=== PATIENT | male | born 1965 | race Two or more races ===

== ENCOUNTER 2017-06-16 20:02 | Emergency (ER) | payer BC ==
--- NOTE | 2017-06-16 20:08 | PDOC ---
History of Present Illness - General History Source: Patient Exam Limitations: No Limitations - History of Present Illness Initial Comments: 06/16/17 20:55 The patient is a 51 year old male, with a significant past medical history of hypothyroidism on Synthroid, who presents to the emergency department with 45 minutes of chest pain. He explains the pain as a discomfort in his left upper quadrant of his torso. He reports to have eaten 5 hours ago a fried meat meal. He denies any recent fevers, chills, headache or dizziness. He denies any recent nausea, vomit, diarrhea or constipation. He denies any recent shortness of breath. He denies any recent dysuria, frequency, urgency or hematuria. Allergies: NKA Past surgical history: None reported. Social History: Nonsmoker. Denies EtOH use and recreational drug use. Primary Care Physician: Dr. Kaur <John Pierre - Last Filed: 06/16/17 21:04> <Ifeanyi Finn - Last Filed: 06/16/17 22:40> - General Chief Complaint: Chest Pain Stated Complaint: CHEST PAIN Time Seen by Provider: 06/16/17 20:07 Past History <John Pierre - Last Filed: 06/16/17 21:04> - Past Medical History Thyroid Disease: Yes (HYPOTHYROID) - Suicide/Smoking/Psychosocial Hx Smoking History: Never smoked Have you smoked in the past 12 months: No Number of Cigarettes Smoked Daily: 0 Hx Alcohol Use: Yes (OCC) Substance Use Type: None <Ifeanyi Finn - Last Filed: 06/16/17 22:40> - Past Medical History Allergies/Adverse Reactions: Allergies Allergy/AdvReac Type Severity Reaction Status Date / Time No Known Allergies Allergy Verified 10/19/13 10:35 Home Medications: Ambulatory Orders Acetaminophen W/ Codeine #3 [Tylenol # 3 -] 1 - 2 tab PO Q6H PRN #30 tablet 04/24 Cephalexin Monohydrate [Keflex -] 500 mg PO Q8H #21 capsule 10/19/13 Levothyroxine [Synthroid -] 100 mcg PO DAILY 10/19/13 Sulfamethoxazole/Trimethoprim [Bactrim DS -] 1 tab PO BID #14 tablet 10/19/13 Review of Systems - Review of Systems Able to Perform ROS?: Yes Comments:: 06/16/17 20:56 GENERAL/CONSTITUTIONAL: No fever or chills. No weakness. HEAD, EYES, EARS, NOSE AND THROAT: No change in vision. No ear pain or discharge. No sore throat. CARDIOVASCULAR: +Chest pain. No shortness of breath. RESPIRATORY: No cough, wheezing, or hemoptysis. GASTROINTESTINAL: No nausea, vomiting, diarrhea or constipation. GENITOURINARY: No dysuria, frequency, or change in urination. MUSCULOSKELETAL: No joint or muscle swelling or pain. No neck or back pain. SKIN: No rash NEUROLOGIC: No headache, vertigo, loss of consciousness, or change in strength/ sensation. ENDOCRINE: No increased thirst. No abnormal weight change. HEMATOLOGIC/LYMPHATIC: No anemia, easy bleeding, or history of blood clots. ALLERGIC/IMMUNOLOGIC: No hives or skin allergy. All Other Systems: Reviewed and Negative <John Pierre - Last Filed: 06/16/17 21:04> *Physical Exam - Vital Signs Last Vital Signs Temp Pulse Resp BP Pulse Ox 98.7 F 66 14 132/87 96 06/16/17 20:06 06/16/17 20:30 06/16/17 20:06 06/16/17 20:06 06/16/17 20:30 - Physical Exam Comments: 06/16/17 21:04 GENERAL: Awake, alert, and fully oriented, in no acute distress HEAD: No signs of trauma EYES: PERRLA, EOMI, sclera anicteric, conjunctiva clear ENT: Auricles normal inspection, hearing grossly normal, nares patent, oropharynx clear without exudates. Moist mucosa NECK: Normal ROM, supple, no lymphadenopathy, JVD, or masses LUNGS: Breath sounds equal, clear to auscultation bilaterally. No wheezes, and no crackles HEART: Regular rate and rhythm, normal S1 and S2, no murmurs, rubs or gallops ABDOMEN: Soft, nontender, normoactive bowel sounds. No guarding, no rebound. No masses EXTREMITIES: Normal range of motion, no edema. No clubbing or cyanosis. No cords, erythema, or tenderness NEUROLOGICAL: Cranial nerves II through XII grossly intact. Normal speech, normal gait SKIN: Warm, Dry, normal turgor, no rashes or lesions noted. <John Pierre - Last Filed: 06/16/17 21:04> ED Treatment Course - Medications Given in the ED: ED Medications Discontinued Medications Generic Name Dose Route Start Last Admin Trade Name Mariia PRN Reason Stop Dose Admin Aspirin 324 mg 06/16/17 20:10 06/16/17 20:32 Asa - PO 06/16/17 20:11 324 mg ONCE ONE Administration <John Pierre - Last Filed: 06/16/17 21:04> - LABORATORY CBC & Chemistry Diagram: 06/16/17 20:22 06/16/17 20:22 <Ifeanyi Finn - Last Filed: 06/16/17 22:40> Medical Decision Making - Medical Decision Making 06/16/17 22:38 Patient refused the Nitro as his pain had already gone away. The pain was very lateral and not reproducible and it was not related to exertion or meals. All diagnsotic studies unremarkable Physical exam normal <Ifeanyi Finn - Last Filed: 06/16/17 22:40> *DC/Admit/Observation/Transfer - Attestations Scribe Attestion: 06/16/17 20:56 Documentation prepared by John Pierre, acting as hospitalist medical director for Ifeanyi Finn MD. <John Pierre - Last Filed: 06/16/17 21:04> - Discharge Dispostion Admit: No - Attestations Physician Attestion: 06/16/17 20:08 I, Dr. Ifeanyi Finn, attest that this document has been prepared under my direction and personally reviewed by me in its entirety. I further attest, that it accurately reflects all work, treatment, procedures and medical decision -making performed by me. <Ifeanyi Finn - Last Filed: 06/16/17 22:40> Diagnosis at time of Disposition: Atypical chest pain - Discharge Dispostion Disposition: HOME Condition at time of disposition: Good - Referrals Referrals: Samuel Kaur MD [Primary Care Provider] - - Patient Instructions Printed Discharge Instructions: DI for Atypical Chest Pain Additional Instructions: Mr Cruz- Your test results are all normal. You can follow up with your doctor later this week. Return to us if any problems. Best- Dr. Ifeanyi Finn - Post Discharge Activity
[2017-06-16] MEDS ORDERED: ASPIRIN 81 MG CHEWABLE TABLETS PO ONE (20:10)
[2017-06-16 20:22] VITALS: BP 132/87; PULSE 66; TEMP 98.7
[2017-06-16] MEDS ORDERED: ASPIRIN 81 MG CHEWABLE TABLETS ONE (20:33)
[2017-06-16] MEDS ORDERED: NITROGLYCERIN SUBLINGUAL 1/150 0.4 MG TAB ONE (20:35)
[2017-06-16] MEDS ORDERED: NITROGLYCERIN SUBLINGUAL 1/150 0.4 MG TAB SL ONE (20:44)
[2017-06-16 21:48] LABS: BASOPHIL 0.4 % (0-2.0); EOSINOPHIL 3.5 % (0-4.5); MCH 30.6 pg (25.7-33.7); MCHC 34.7 g/dl (32.0-35.9); MEAN CELL VOLUME 88.1 fl (80-96); MEAN PLT VOLUME 8.5 fl (7.5-11.1); NEUTROPHILS 55.4 % (42.8-82.8); PLATELET COUNT 237 K/MM3 (134-434); RDW 12.5 % (11.9-15.9); WHITE BLOOD COUNT 6.6 K/mm3 (4.0-10.8)
[2017-06-16 21:57] LABS: INR 1.11 (0.82-1.09); PROTHROMBIN TIME (PATIENT) 12.4 SEC (10.2-13.0)
[2017-06-16 22:03] LABS: ALBUMIN 4.5 g/dl (3.5-5.0); ALK PHOS 46 U/L (32-92); ANION GAP 8 (8-16); BILIRUBIN,TOTAL 0.7 mg/dl (0.2-1.0); CALCIUM 9.3 mg/dl (8.4-10.2); CO2 28 mmol/L (22-28); CPK 253 IU/L (39-308); CREATININE 0.7 mg/dl (0.6-1.3); GLUCOSE,RANDOM 108 mg/dl (74-106); SGOT/AST 25 U/L (10-42); SGPT/ALT 36 U/L (10-40); TOT PROT 7.1 g/dl (6.4-8.3)
[2017-06-16 22:15] LABS: TROPONIN I (DFP) < 0.03 ng/ml (0.03-0.50)
--- NOTE | 2017-06-17 13:27 | EKG ---
Test Reason : Blood Pressure : / mmHG Vent. Rate : 066 BPM Atrial Rate : 066 BPM P-R Int : 180 ms QRS Dur : 088 ms QT Int : 390 ms P-R-T Axes : 043 032 031 degrees QTc Int : 408 ms POOR DATA QUALITY, INTERPRETATION MAY BE ADVERSELY AFFECTED NORMAL SINUS RHYTHM NORMAL ECG NO PREVIOUS ECGS AVAILABLE Confirmed by SUE TIRADO MD ([id number] on 06/17/2017 1:27:00 PM Referred By: MD VILLATORO Confirmed By:SUE TIRADO MD
== END 2017-06-16 23:14 | disposition home or self-care (01) ==
LOC: FER 20:02
DX: R07.89 Other chest pain (principal); E03.9 Hypothyroidism, unspecified
CPT/HCPCS: 36415; 71010-TC; 80053; 82550; 82553; 84484; 85025; 85610; 93005; 99285-25

== ENCOUNTER 2020-01-12 17:47 | Emergency (ER) | payer BC ==
[2020-01-12 18:02] VITALS: TEMP 98.3; BMI 28.3
--- NOTE | 2020-01-12 18:42 | PDOC ---
Documentation entered by Mary Fishman SCRIBE, acting as scribe for Gita Boland MD. Gita Boland MD: This documentation has been prepared by the [email or web address] juárez Lincy, SCRIBE, under my direction and personally reviewed by me in its entirety. I confirm that the documentation accurately reflects all work, treatment, procedures, and medical decision making performed by me. History of Present Illness - General Chief Complaint: Shortness of Breath Stated Complaint: SOB History Source: Patient Exam Limitations: No Limitations - History of Present Illness Initial Comments: 01/12/20 18:40 54-year-old male here today complaining of shortness of breath on exertion. P atient states he was COVID positive in September at that time was treated as an outpatient says he was ill for several weeks did feel slightly better following but over the last 2 weeks he is noticed increasing shortness of breath with going upstairs and decreased exercise capacity. Has had bilateral leg swelling which is minimal denies any chest pain or pleurisy. Last night he started noting vertigo-like sensation which was continued into today denies any change to balance but did feel lightheaded in addition no nausea or vomiting associated no history of previous seasonal allergies did not take anything for his symptoms overall just not feeling well states that he believes his was positive to Past History - Medical History Allergies/Adverse Reactions: Allergies Allergy/AdvReac Type Severity Reaction Status Date / Time No Known Allergies Allergy Verified 01/12/20 17:48 Home Medications: Ambulatory Orders Levothyroxine [Synthroid -] 100 mcg PO DAILY 10/19/13 Aspirin [Aspirin EC] 81 mg PO DAILY 11/06/19 Cholecalciferol (Vitamin D3) [Vitamin D3 -] 50,000 unit PO WEEKLY 11/06/19 Omeprazole 20 mg PO DAILY 11/06/19 Vitamin B Complex 1 each PO DAILY 11/06/19 Magnesium Oxide [Mag-Ox -] 400 mg PO DAILY 01/12/20 Meclizine HCl [Antivert -] 25 mg PO TID PRN #15 tablet 01/12/20 COPD: No Thyroid Disease: Yes (HYPOTHYROID) - Psycho-Social/Smoking History Smoking History: Never smoked Have you smoked in the past 12 months: No Number of Cigarettes Smoked Daily: 0 Information on smoking cessation initiated: No - Substance Abuse Hx (Audit-C & DAST Scrn) How often the patient has a drink containing alcohol: Monthly or less Score: In Men: 4 or > Positive; In Women: 3 or > Positive: 1 Screen Result (Pos requires Nsg. Audit-10AR): Negative In the last yr the pt used illegal drug/Rx for NonMed reason: No Score: Yes response is considered Positive: 0 Screen Result (Positive result requires Nsg. DAST-10): Negative *Physical Exam - Vital Signs Last Vital Signs Temp Pulse Resp BP Pulse Ox 98.3 F 76 18 145/100 100 01/12/20 17:51 01/12/20 17:51 01/12/20 17:51 01/12/20 17:51 01/12/20 17:51 - Physical Exam 01/12/20 18:40 Awake alert no acute distress lungs are clear bilaterally heart is regular 30 murmurs rubs or gallops abdomen soft nontender extremities are warm well perfused there is no appreciated peripheral edema or calf tenderness. Neurologically patient is awake alert and oriented x3 has 5 out of 5 all 4 extremity strength. [id number] testing is normal alternating hand movements is normal gait is normal [id number] is normal patient has a positive Landen- Hallpike with vertical horizontal nystagmus noted to the left only ED Treatment Course - LABORATORY CBC & Chemistry Diagram: 01/12/20 18:30 01/12/20 18:30 Medical Decision Making - Medical Decision Making 01/12/20 18:41 54-year-old male recently COVID positive here today complaining of exertional shortness of breath fatigue and now vertigo-like symptoms. Patient has a normal neurological exam normal cerebellar testing does have positive Jerome-Hallpike with nystagmus noted. Will treat his symptoms with meclizine at this time will order a CT head without to rule out occult stroke due to his history of recent COVID focused bedside echo was performed to rule out any pericardial effusion or decreased contractility overall patient has good contractility no pericardial effusion appreciated differential includes persistent lung scarring from prior COVID, pleural effusion pneumonia PE is also considered anemia or electrolyte abnormality. Discharge - Discharge Information Problems reviewed: Yes Clinical Impression/Diagnosis: Vertigo Dyspnea Qualifiers: Dyspnea type: dyspnea on exertion Qualified Code(s): R06.00 - Dyspnea, unspecified Condition: Stable Disposition: HOME - Additional Discharge Information Prescriptions: Meclizine HCl [Antivert -] 25 mg PO TID PRN #15 tablet PRN Reason: Vertigo - Follow up/Referral Referrals: Laisha Nobles MD [Primary Care Provider] - Call tomorrow - Patient Discharge Instructions Patient Printed Discharge Instructions: DI for Shortness of Breath Additional Instructions: Meclizine 25 mg up to 3 times a day as needed for vertigo Call Dr. Arriaza regarding today's ER visit and follow-up as arranged Return to ER if you have severe shortness of breath, chest pain, fever or persistent vertigo - Post Discharge Activity
[2020-01-12] MEDS ORDERED: MECLIZINE HCL 25 MG TABLET (FP) PO ONE (18:43)
[2020-01-12 18:47] LABS: BASO % 1.3 % (0-2.0); EOS % 4.2 % (0-4.5); HEMATOCRIT 38.3 % (35.4-49); HEMOGLOBIN 13.1 GM/dl (11.7-16.9); LYMPH % 30.8 % (8-40); MCH 29.6 pg (25.7-33.7); MCHC 34.1 g/dl (32.0-35.9); MEAN CELL VOLUME 86.8 fl (80-96); MEAN PLT VOLUME 7.8 fl (7.5-11.1); MONO % 8.8 % (3.8-10.2); NEUT % 54.9 % (42.8-82.8); PLATELET COUNT 237 K/MM3 (134-434); RBC 4.42 M/mm3 (4.00-5.60); RDW 12.9 % (11.9-15.9); WHITE BLOOD COUNT 5.8 K/mm3 (4.0-10.8)
[2020-01-12] MEDS ORDERED: MECLIZINE HCL 25 MG TABLET (FP) ONE (18:48)
[2020-01-12 18:55] LABS: INR 1.16 (0.82-1.09); PROTHROMBIN TIME (PATIENT) 12.9 SEC (10.2-13.0)
[2020-01-12 18:57] LABS: ALBUMIN 4.2 g/dl (3.4-5.0); BILIRUBIN,TOTAL 0.9 mg/dl (0.2-1); CALCIUM 9.2 mg/dl (8.5-10); CREATININE 0.8 mg/dl (0.55-1.3); TOT PROT 6.5 g/dl (6.4-8.2)
--- NOTE | 2020-01-12 20:05 | PDOC ---
*Physical Exam - Vital Signs Last Vital Signs Temp Pulse Resp BP Pulse Ox 98.3 F 76 18 145/100 100 01/12/20 17:51 01/12/20 17:51 01/12/20 17:51 01/12/20 17:51 01/12/20 17:51 ED Treatment Course - LABORATORY CBC & Chemistry Diagram: 01/12/20 18:30 01/12/20 18:30 - ADDITIONAL ORDERS Additional order review: Laboratory Results 01/12/20 01/12/20 01/12/20 18:34 18:34 18:30 PT with INR INR Sodium 135 L Potassium 4.0 Chloride 104 Carbon Dioxide 24 Anion Gap 7 L BUN 16.0 Creatinine 0.8 Est GFR (CKD-EPI)AfAm 116.56 Est GFR (CKD-EPI)NonAf 100.57 Random Glucose 116 H Calcium 9.2 Total Bilirubin 0.9 AST 23 ALT 30 Alkaline Phosphatase 42 L Creatine Kinase 226 Creatine Kinase Index 0.8 CK-MB (CK-2) 2.0 Troponin I < 0.03 Total Protein 6.5 Albumin 4.2 01/12/20 18:12 PT with INR 12.9 INR 1.16 Sodium Potassium Chloride Carbon Dioxide Anion Gap BUN Creatinine Est GFR (CKD-EPI)AfAm Est GFR (CKD-EPI)NonAf Random Glucose Calcium Total Bilirubin AST ALT Alkaline Phosphatase Creatine Kinase Creatine Kinase Index CK-MB (CK-2) Troponin I Total Protein Albumin 01/12/20 18:30 RBC 4.42 MCV 86.8 MCHC 34.1 RDW 12.9 MPV 7.8 Neutrophils % 54.9 Lymphocytes % 30.8 Monocytes % 8.8 Eosinophils % 4.2 Basophils % 1.3 D - Medications Given in the ED: ED Medications Discontinued Medications Generic Name Dose Route Start Last Admin Trade Name Freq PRN Reason Stop Dose Admin Meclizine HCl 25 mg 01/12/20 18:43 01/12/20 18:50 Antivert - PO 01/12/20 18:44 25 mg ONCE ONE Administration ED Progress Note - Progress Note Progress Note: Care of this patient received from Dr. Ornelas CT angiogram of the chest negative for thromboembolic process Noncontrast head CT negative for acute intracranial process. Patient discharged with plan to follow-up with his PMD, Dr. England. Since he had some relief of his vertigo with meclizine 25 mg prescription for this medication, to be taken up to 3 times a day as needed for vertigo was sent to his pharmacy. He should return to the emergency room if he develops severe, persistent shortness of breath or if he develops chest pain, cough, fever. Discharge - Discharge Information Problems reviewed: Yes Clinical Impression/Diagnosis: Vertigo Dyspnea Qualifiers: Dyspnea type: dyspnea on exertion Qualified Code(s): R06.00 - Dyspnea, unspecified Condition: Stable Disposition: HOME - Additional Discharge Information Prescriptions: Meclizine HCl [Antivert -] 25 mg PO TID PRN #15 tablet PRN Reason: Vertigo - Follow up/Referral Referrals: Laisha Nobles MD [Primary Care Provider] - Call tomorrow - Patient Discharge Instructions Patient Printed Discharge Instructions: DI for Shortness of Breath Additional Instructions: Meclizine 25 mg up to 3 times a day as needed for vertigo Call Dr. Arriaza regarding today's ER visit and follow-up as arranged Return to ER if you have severe shortness of breath, chest pain, fever or persistent vertigo - Post Discharge Activity
[2020-01-12 22:52] VITALS: BP 156/98; PULSE 61
--- NOTE | 2020-01-14 14:23 | EKG ---
Test Reason : Blood Pressure : / mmHG Vent. Rate : 067 BPM Atrial Rate : 067 BPM P-R Int : 180 ms QRS Dur : 092 ms QT Int : 408 ms P-R-T Axes : 031 027 013 degrees QTc Int : 431 ms NORMAL SINUS RHYTHM NORMAL ECG WHEN COMPARED WITH ECG OF 06-NOV-2019 15:36, NO SIGNIFICANT CHANGE WAS FOUND Confirmed by SHONDA LABOY MD ([id number]) on 01/14/2020 2:23:17 PM Referred By: MD BROWN Confirmed By:SHONDA LABOY MD
== END 2020-01-12 22:54 | disposition home or self-care (01) ==
LOC: SUPCPDRO 17:47 → FER 17:47
DX: R06.09 Other forms of dyspnea (principal); R42 Dizziness and giddiness
CPT/HCPCS: 36415; 70450-TC; 71045-TC-FY; 71275-TC; 80053; 82550; 82553; 84484; 85025; 85610; 93005; 93308; 99285-25; Q9967; U0003

== ENCOUNTER 2020-08-30 17:09 | Emergency (ER) | payer BC, OTHER ==
[2020-08-30] MEDS ORDERED: IBUPROFEN 400 MG TABLET (FP) PO ONE ×2 (17:16→17:44)
[2020-08-30 17:22] VITALS: BP 154/97; PULSE 74; TEMP 99.5
== END 2020-08-30 19:14 | disposition home or self-care (01) ==
LOC: FER 17:09
DX: S99.911A Unspecified injury of right ankle, initial encounter (principal)
CPT/HCPCS: 73610-TC-RT-FY; 73630-TC-RT-FY; 99283-25